=== PATIENT | male | born 1960 | race Caucasian/White ===

== ENCOUNTER 2019-05-04 09:15 | Emergency (ER) | payer BC ==
[2019-05-04] MEDS ORDERED: NA CHLORIDE 0.9% 2,000 ML ONE (09:44)
--- NOTE | 2019-05-04 09:53 | RAD REPORT ---
EXAM DESCRIPTION: RAD - Chest Single View - 05/04/2019 9:47 am CLINICAL HISTORY: COUGH Chest pain. COMPARISON: No comparisons FINDINGS: Portable technique limits examination quality. Rounded 2 cm opacity is present in the right mid lung. This likely represents a mass. The heart is no rmal in size. Destructive changes are present left humeral head, likely metastatic.CT chest is recomm ended for follow-up assessment.
[2019-05-04 09:58] LABS: Absolute Lymphocytes (CBC) 0.4 K/uL (0.7-4.9); Basophils % 0.2 % (0-1.3); Lymphocytes % 3.7 % (15.3-44.8); MPV 6.7 fL (7.6-11.3); RBC Red Blood Cell Count 2.98 M/uL (4.33-5.43)
[2019-05-04 09:59] LABS: Protime INR 1.19
[2019-05-04 10:07] LABS: ALT/SGPT 28 U/L (12-78); AST/SGOT 48 U/L (15-37); Albumin 3.3 g/dL (3.4-5.0); Alkaline Phosphatase 200 U/L (45-117); BUN Blood Urea Nitrogen 33 mg/dL (7-18); Bicarbonate 30 mmol/L (21-32); Bilirubin Direct 0.6 mg/dL (0-0.2); Bilirubin Total 1.1 mg/dL (0.2-1.0); Glucose Level 150 mg/dL (74-106); Magnesium 1.8 mg/dL (1.8-2.4); NT PRO-BNP 282 pg/mL (<125); Potassium 4.5 mmol/L (3.5-5.1); Protein, Total 7.8 g/dL (6.4-8.2); Sodium Level 130 mmol/L (136-145); Troponin (Emerg Dept Use Only) < 0.02 ng/mL (0.0-0.045)
--- NOTE | 2019-05-04 10:25 | EDPHYS ---
Physician Documentation [facility] Name: Daquan Hernandez Age: 58 yrs Sex: Male : 1960 Arrival Date: 05/04/2019 Time: 09:18 Bed 17 Private MD: REBECCA Physician Will Monet HPI: 05/03 10:18 This 58 yrs old Male presents to ER via Wheelchair with complaints of escobar Dehydration. 10:18 The patient presents to the emergency department with nausea, vomiting, described as escobar coffee ground in nature, diarrhea, that is intermittent, abdominal pain, described as crampy. Onset: The symptoms/episode began/occurred last night. Possible causes: unknown. The symptoms are aggravated by nothing. The symptoms are alleviated by nothing. Associated signs and symptoms: The patient has no apparent associated signs or symptoms. Severity of symptoms: At their worst the symptoms were moderate in the emergency department the symptoms are unchanged. Historical: - Allergies: 09:32 No Known Allergies; ca1 - Home Meds: :32 desvenlafaxine succinate oral 50 mg oral 1 tab once daily [Active]; olmesartan oral ca1 40mg oral 1 tab once daily [Active]; promethazine 25 mg Oral tab 1 tab once daily [Active]; - PMHx: :32 Ulcers; Hypertension; Depression; peripheral Neuropathy; ca1 - PSHx: :32 None; ca1 - Immunization history:: Adult Immunizations up to date, Flu vaccine is not up to date. - Social history:: Smoking status: Patient denies any tobacco usage or history of. ROS: 10:19 Constitutional: Negative for fever, chills, and weight loss, Eyes: Negative for injury, escobar pain, redness, and discharge, ENT: Negative for injury, pain, and discharge, Neck: Negative for injury, pain, and swelling, Respiratory: Negative for shortness of breath, cough, wheezing, and pleuritic chest pain, Back: Negative for injury and pain, : Negative for injury, bleeding, discharge, and swelling, MS/Extremity: Negative for injury and deformity, Neuro: Negative for headache, weakness, numbness, tingling, and seizure, Psych: Negative for depression, anxiety, suicide ideation, homicidal ideation, and hallucinations, Allergy/Immunology: Negative for hives, rash, and allergies, Endocrine: Negative for neck swelling, polydipsia, polyuria, polyphagia, and marked weight changes, Hematologic/Lymphatic: Negative for swollen nodes, abnormal bleeding, and unusual bruising. 10:19 Cardiovascular: Positive for palpitations. 10:19 Abdomen/GI: Positive for abdominal pain, nausea, vomiting, black/tarry stool. 10:19 Skin: Positive for pallor. Exam: 10:19 Constitutional: This is a well developed, well nourished patient who is awake, alert, escobar and in no acute distress. Head/Face: Normocephalic, atraumatic. Eyes: Pupils equal round and reactive to light, extra-ocular motions intact. Lids and lashes normal. Conjunctiva and sclera are non-icteric and not injected. Cornea within normal limits. Periorbital areas with no swelling, redness, or edema. ENT: Nares patent. No nasal discharge, no septal abnormalities noted. Tympanic membranes are normal and external auditory canals are clear. Oropharynx with no redness, swelling, or masses, exudates, or evidence of obstruction, uvula midline. Mucous membranes moist. Neck: Trachea midline, no thyromegaly or masses palpated, and no cervical lymphadenopathy. Supple, full range of motion without nuchal rigidity, or vertebral point tenderness. No Meningismus. Chest/axilla: Normal chest wall appearance and motion. Nontender with no deformity. No lesions are appreciated. Respiratory: Lungs have equal breath sounds bilaterally, clear to auscultation and percussion. No rales, rhonchi or wheezes noted. No increased work of breathing, no retractions or nasal flaring. Back: No spinal tenderness. No costovertebral tenderness. Full range of motion. Male : Normal genitalia with no discharge or lesions. Skin: Warm, dry with normal turgor. Normal color with no rashes, no lesions, and no evidence of cellulitis. MS/ Extremity: Pulses equal, no cyanosis. Neurovascular intact. Full, normal range of motion. Neuro: Awake and alert, GCS 15, oriented to person, place, time, and situation. Cranial nerves II-XII grossly intact. Motor strength 5/5 in all extremities. Sensory grossly intact. Cerebellar exam normal. Normal gait. Psych: Awake, alert, with orientation to person, place and time. Behavior, mood, and affect are within normal limits. 10:19 Cardiovascular: Rate: tachycardic, Rhythm: Pulses: Pulses are 4+ in bilateral radial, brachial, femoral, popliteal, posterior tibial and and dorsalis pedis arteries.. Heart sounds: normal, normal S1and S2, no S3 or S4, no murmur, no rub, no gallop, Edema: is not appreciated, JVD: is not appreciated. Vital Signs: 09:27 BP 162 / 99; Pulse 118; Resp 20; Temp 98.8(O); Pulse Ox 100% on R/A; Weight 61.23 kg ca1 (R); Height 5 ft. 6 in. (167.64 cm) (R); Pain 0/10; 09:30 BP 155 / 90 LA; ca1 09:41 BP 153 / 99 RA; ca1 10:07 BP 142 / 86; Pulse 104; Resp 12 S; Pulse Ox 100% on R/A; ca1 10:50 BP 141 / 86; Pulse 109; Resp 14 S; Pulse Ox 100% on R/A; ca1 11:50 BP 151 / 86; Pulse 92; Resp 16; Pulse Ox 100% on R/A; ca1 12:13 BP 151 / 86; Pulse 100; Resp 18; Temp 98.8; Pulse Ox 100% on R/A; mg2 09:27 Body Mass Index 21.79 (61.23 kg, 167.64 cm) ca1 MDM: 09:22 Patient medically screened. [facility] 10:21 Data reviewed: vital signs, nurses notes. [facility] 05/03 09:24 Order name: Basic Metabolic Panel; Complete Time: 10:16 [facility] 05/03 09:24 Order name: CBC with Diff; Complete Time: 11:15 [facility] 05/03 09:24 Order name: LFT's; Complete Time: 10:16 [facility] 05/03 09:24 Order name: Magnesium; Complete Time: 10:16 [facility] 05/03 09:24 Order name: NT PRO-BNP; Complete Time: 10:16 [facility] 05/03 09:24 Order name: PT-INR; Complete Time: 10:16 [facility] 05/03 09:24 Order name: Troponin (emerg Dept Use Only); Complete Time: 10:16 [facility] 05/03 09:24 Order name: XRAY Chest (1 view); Complete Time: 10:16 [facility] 05/03 09:24 Order name: Urine Culture [facility] 05/03 10:16 Order name: Type And Screen [facility] 05/03 10:16 Order name: Occult Blood--Ancillary bd 05/03 10:48 Order name: Urine Dipstick--Ancillary (enter results) 05/03 10:51 Order name: Urine Dipstick-Ancillary; Complete Time: 11:15 EDMS 05/03 10:54 Order name: Manual Differential; Complete Time: 11:15 EDMS 05/03 09:24 Order name: EKG; Complete Time: 09:25 [facility] 05/03 09:24 Order name: Cardiac monitoring; Complete Time: 09:42 [facility] 05/03 09:24 Order name: EKG - Nurse/Tech; Complete Time: 09:26 [facility] 05/03 09:24 Order name: IV Saline Lock; Complete Time: 09:44 [facility] 05/03 09:24 Order name: Labs collected and sent; Complete Time: 09:42 [facility] 05/03 09:24 Order name: O2 Per Protocol; Complete Time: 09:26 [facility] 05/03 09:24 Order name: O2 Sat Monitoring; Complete Time: 09:26 [facility] 05/03 09:24 Order name: Urine Dipstick-Ancillary (obtain specimen); Complete Time: 10:41 escobar Administered Medications: 09:40 Drug: NS 0.9% 1000 ml Route: IV; Rate: 1 bolus; Site: right antecubital; ca1 10:45 Follow up: Response: No adverse reaction; IV Status: Completed infusion ca1 10:30 Drug: Vitamin K1 10 mg Route: Sub-Q; Site: right lower abdomen; ca1 11:08 Follow up: Response: No adverse reaction ca1 10:32 Drug: Thiamine 100 mg Route: IV; Rate: bolus; Site: right antecubital; ca1 11:09 Follow up: Response: No adverse reaction; IV Status: Completed infusion ca1 10:35 Drug: ProTONIX 80 mg Route: IVP; Site: left antecubital; ca1 11:08 Follow up: Response: No adverse reaction ca1 10:45 Drug: NS 0.9% 1000 ml Route: IV; Rate: 125 ml/hr; Site: right antecubital; ca1 10:45 Follow up: Response: No adverse reaction; IV Status: Infusion continued upon transfer ca1 10:45 Drug: Ativan 1 mg Route: IVP; Site: left antecubital; ca1 11:09 Follow up: Response: No adverse reaction; Marked relief of symptoms ca1 11:08 Drug: ProTONIX 8 mg/hr Route: IV; Rate: 25 ml/hr; Site: left antecubital; ca1 11:08 Follow up: Response: No adverse reaction; IV Status: Infusion continued upon transfer ca1 13:03 Not Given (not needed): Ativan 1 mg IVP once; if needed mg2 Disposition: 05/04/19 10:23 Transfer ordered to [facility]. Diagnosis are Vomiting, Gastrointestinal hemorrhage, unspecified, Alcohol abuse, Solitary pulmonary nodule - mass, Pain in left shoulder - suspect metastatic lesion, Anemia, unspecified. - Reason for transfer: Higher level of care. - Accepting physician is to [facility]. - Condition is Fair. - Problem is new. - Symptoms have improved. Signatures: Dispatcher [employer] EDWill Le MD MD cha Gardose, Michele, RN RN mg2 Phylicia Carrillo RN RN ca1 Corrections: (The following items were deleted from the chart) 13:04 10:23 05/04/2019 10:23 Transfer ordered to [facility]. mg2 Diagnosis is Vomiting; Gastrointestinal hemorrhage, unspecified; Alcohol abuse; Solitary pulmonary nodule - mass; Pain in left shoulder - suspect metastatic lesion; Anemia, unspecified. Reason for transfer: Higher level of care. Accepting physician is to [facility]. Condition is Fair. Problem is new. Symptoms have improved. escobar
--- NOTE | 2019-05-04 10:25 | ER ---
Nurse's Notes [facility] Name: Daquan Hernandez Age: 58 yrs Sex: Male : 1960 Arrival Date: 05/04/2019 Time: 09:18 Bed 17 Private MD: Diagnosis: Vomiting;Gastrointestinal hemorrhage, unspecified;Alcohol abuse;Solitary pulmonary nodule-mass;Pain in left shoulder-suspect metastatic lesion;Anemia, unspecified Presentation: 05/03 09:27 Chief complaint: Patient states: Vomiting blood since yesterday. Couldn't keep anything ca1 down. Reports chills. Denies bloody stools. Hx of gastric ulcers. Coronavirus screen: The patient has NOT traveled to [place] in the past 14 days. The patient has NOT had contact with known and/or suspected case of Coronavirus. Ebola Screen: Patient negative for fever greater than or equal to 101.5 degrees Fahrenheit, and additional compatible Ebola Virus Disease symptoms Patient denies exposure to infectious person. Patient denies travel to an Ebola-affected area in the 21 days before illness onset. No symptoms or risks identified at this time. Initial Sepsis Screen: Does the patient meet any 2 criteria? No. Patient's initial sepsis screen is negative. Does the patient have a suspected source of infection? No. Patient's initial sepsis screen is negative. Risk Assessment: Do you want to hurt yourself or someone else? Patient reports no desire to harm self or others. Onset of symptoms was May 04, 2019. 09:27 Method Of Arrival: Wheelchair ca1 09:27 Acuity: ULISSES 3 ca1 Historical: - Allergies: 09:32 No Known Allergies; ca1 - Home Meds: 09:32 desvenlafaxine succinate oral 50 mg oral 1 tab once daily [Active]; olmesartan oral ca1 40mg oral 1 tab once daily [Active]; promethazine 25 mg Oral tab 1 tab once daily [Active]; - PMHx: 09:32 Ulcers; Hypertension; Depression; peripheral Neuropathy; ca1 - PSHx: 09:32 None; ca1 - Immunization history:: Adult Immunizations up to date, Flu vaccine is not up to date. - Social history:: Smoking status: Patient denies any tobacco usage or history of. Screenin:52 Abuse screen: Denies threats or abuse. Denies injuries from another. Nutritional ca1 screening: No deficits noted. Tuberculosis screening: No symptoms or risk factors identified. Fall Risk IV access (20 points). Assessment: 09:45 General: Appears in no apparent distress. comfortable, Behavior is calm, cooperative, ca1 appropriate for age. General: Reports chills for 0-12 hours, feeling ill for 0-12 hours, fatigue for 0-12 hours. Pain: Denies pain. Neuro: Level of Consciousness is awake, alert, obeys commands, Oriented to person, place, time, situation, Appropriate for age. Cardiovascular: Heart tones S1 S2 present Capillary refill < 3 seconds Pulses are all present. Rhythm is sinus tachycardia. Respiratory: Airway is patent Respiratory effort is even, unlabored, Respiratory pattern is regular, symmetrical, Breath sounds are clear bilaterally. GI: Abdomen is flat, non-distended, Bowel sounds present X 4 quads. Abd is soft and non tender X 4 quads. Reports intolerance of fluids, intolerance of food, vomiting, since last night, dark in color. : No signs and/or symptoms were reported regarding the genitourinary system. EENT: No signs and/or symptoms were reported regarding the EENT system. Derm: Skin is intact, is healthy with good turgor, Skin is diaphoretic, Skin is pale, Skin temperature is cool. Musculoskeletal: Circulation, motion, and sensation intact. Capillary refill < 3 seconds. 10:50 Reassessment: Patient appears in no apparent distress at this time. Patient and/or ca1 family updated on plan of care and expected duration. Pain level reassessed. Patient is alert, oriented x 3, equal unlabored respirations, skin warm/dry/pink. Sister at bedside Patient states feeling better. Patient states symptoms have improved. Derm: Skin is intact, is healthy with good turgor, Skin is pink, warm \T\ dry. 11:50 Reassessment: Patient appears in no apparent distress at this time. Patient and/or ca1 family updated on plan of care and expected duration. Pain level reassessed. Patient is alert, oriented x 3, equal unlabored respirations, skin warm/dry/pink. 12:12 Reassessment: report given to DENNIS Alvarado of [facility]. mg2 12:52 Reassessment: report given to [facility], patient in good condition, aox4, 2 ivc mg2 intact with fluids and protonix drip ongoing.. Vital Signs: 09:27 BP 162 / 99; Pulse 118; Resp 20; Temp 98.8(O); Pulse Ox 100% on R/A; Weight 61.23 kg ca1 (R); Height 5 ft. 6 in. (167.64 cm) (R); Pain 0/10; 09:30 BP 155 / 90 LA; ca1 09:41 BP 153 / 99 RA; ca1 10:07 BP 142 / 86; Pulse 104; Resp 12 S; Pulse Ox 100% on R/A; ca1 10:50 BP 141 / 86; Pulse 109; Resp 14 S; Pulse Ox 100% on R/A; ca1 11:50 BP 151 / 86; Pulse 92; Resp 16; Pulse Ox 100% on R/A; ca1 12:13 BP 151 / 86; Pulse 100; Resp 18; Temp 98.8; Pulse Ox 100% on R/A; mg2 09:27 Body Mass Index 21.79 (61.23 kg, 167.64 cm) ca1 ED Course: 09:18 Patient arrived in ED. mr 09:19 Phylicia Carrillo, DENNIS is Primary Nurse. ca1 09:22 Will Monet MD is Attending Physician. escobar 09:29 Triage completed. ca1 09:32 EKG done, by systems protection technician. reviewed by Will Monet MD. at1 09:32 Arm band placed on. EKG completed in triage. Results shown to MD. ca1 09:37 No provider procedures requiring assistance completed. Inserted saline lock: 18 gauge ca1 in right antecubital area, using aseptic technique. Blood collected. 09:37 Initial lab(s) drawn, by co, sent to lab. ca1 09:46 X-ray completed. Portable x-ray completed in exam room. Patient tolerated procedure jb2 well. 09:47 XRAY Chest (1 view) In Process Unspecified. EDMS 09:52 Inserted saline lock: 20 gauge in left antecubital area, using aseptic technique. ca1 09:52 Patient has correct armband on for positive identification. Placed in gown. Bed in low ca1 position. Call light in reach. Side rails up X2. roulette dealer on. Pulse ox on. NIBP on. 10:40 Urine collected: clean catch specimen, derek colored. ms 12:11 Patient transferred, IV remains in place. mg2 Administered Medications: 09:40 Drug: NS 0.9% 1000 ml Route: IV; Rate: 1 bolus; Site: right antecubital; ca1 10:45 Follow up: Response: No adverse reaction; IV Status: Completed infusion ca1 10:30 Drug: Vitamin K1 10 mg Route: Sub-Q; Site: right lower abdomen; ca1 11:08 Follow up: Response: No adverse reaction ca1 10:32 Drug: Thiamine 100 mg Route: IV; Rate: bolus; Site: right antecubital; ca1 11:09 Follow up: Response: No adverse reaction; IV Status: Completed infusion ca1 10:35 Drug: ProTONIX 80 mg Route: IVP; Site: left antecubital; ca1 11:08 Follow up: Response: No adverse reaction ca1 10:45 Drug: NS 0.9% 1000 ml Route: IV; Rate: 125 ml/hr; Site: right antecubital; ca1 10:45 Follow up: Response: No adverse reaction; IV Status: Infusion continued upon transfer ca1 10:45 Drug: Ativan 1 mg Route: IVP; Site: left antecubital; ca1 11:09 Follow up: Response: No adverse reaction; Marked relief of symptoms ca1 11:08 Drug: ProTONIX 8 mg/hr Route: IV; Rate: 25 ml/hr; Site: left antecubital; ca1 11:08 Follow up: Response: No adverse reaction; IV Status: Infusion continued upon transfer ca1 13:03 Not Given (not needed): Ativan 1 mg IVP once; if needed mg2 Outcome: 10:23 ER care complete, transfer ordered by . escobar 12:53 Transferred by [facility] to [facility], Transfer form completed. mg2 12:53 Condition: stable 12:53 Instructed on the need for transfer, Demonstrated understanding of instructions. 13:04 Patient left the ED. mg2 Signatures: Dispatcher [employer] Will Fernandez MD MD cha Rivera, Mary mr Sudeep Funes Maria ms Gonzales, Amanda, char filter tank tender EKG Tat1 Frank Abdul, DENNIS RN mg2 Phylicia Carrillo RN RN ca1
[2019-05-04] MEDS ORDERED: PANTOPRAZOLE 40 MG INJ ONE (10:31)
[2019-05-04] MEDS ORDERED: LORazepam 2 MG/ML VIAL ONE (10:31)
[2019-05-04] MEDS ORDERED: VITAMIN K (ADULT) 10 MG/ML ONE (10:31)
[2019-05-04] MEDS ORDERED: WATER FOR INJ,STERILE 20 ML ONE (10:31)
[2019-05-04] MEDS ORDERED: THIAMINE 200 MG/2 ML INJ ONE (10:31)
[2019-05-04] MEDS ORDERED: PANTOPRAZOLE INJ 80 MG in NA CHLORIDE 0.9% 250 ML IV ONE (10:45)
[2019-05-04 10:50] LABS: Urine Blood NEGATIVE (NEG); Urine Glucose NEGATIVE (NEG); Urine Protein NEGATIVE (NEG); Urine pH 7.5 (5.0-7.0)
[2019-05-04 10:54] LABS: Blood Morphology Comment NOT SEEN (NOT SEEN); Platelet Estimate ADEQ
[2019-05-04 13:27] VITALS: TEMP 98.8; O2SAT 100
[2019-05-04 13:32] VITALS: BP 151/86
--- NOTE | 2019-05-06 08:27 | EKG ---
Test Date: 2019-05-04 Test Time: 09:28:48 Superintendent [employer]: RISHI MEASUREMENT RESULTS: Intervals: Rate: 120 PA: 154 QRSD: 76 QT: 312 QTc: 440 [place]: P: 63 PA: 154 QRS: 70 T: 60 INTERPRETIVE STATEMENTS: Sinus tachycardia Otherwise normal ECG Compared to ECG 06/07/2006 00:56:45 Sinus rhythm no longer present Electronically Signed On 05-06-19 08:26:43 FAX MACHINE REPAIRER by Kofi Brumfield
== END 2019-05-04 13:04 | disposition short-term general hospital (02) ==
LOC: ER 09:15
DX: K92.2 Gastrointestinal hemorrhage, unspecified (principal); R91.1 Solitary pulmonary nodule; D64.9 Anemia, unspecified; M25.512 Pain in left shoulder; I10 Essential (primary) hypertension; F32.9 Major depressive disorder, single episode, unspecified
CPT/HCPCS: 96365; 96361; 93005; 87088; 85025; 80048; 36415; 86900; 83735; 86850; 85610; 86901; 80076; 81003; 84484; 83880; 71045; 96375; 96372; 99285; J3411; J3430; C9113 ×2; J7030 ×2; 87086